=== PATIENT | female | born 1950 | race Caucasian/White ===

== ENCOUNTER 2023-01-20 15:41 | Emergency (ER) | payer MEDICARE, OTHER | END 2023-01-20 17:45 | disposition home or self-care (01) | LOC: JP.ED 15:41 | DX: S92.002A Unspecified fracture of left calcaneus, initial encounter for closed fracture (principal); W23.0XXA Caught, crushed, jammed, or pinched between moving objects, initial encounter | CPT/HCPCS: 73630-26-LT; 73630-LT; 99283 ==